=== PATIENT | male | born 1990 ===

== ENCOUNTER 2020-04-10 06:42 | Outpatient (NON) | payer BC, SELFPAY ==
[2020-04-13 01:47] LABS: SARS-CoV-2 RNA PCR Negative
== END 2020-04-10 06:43 ==
DX: Z01.812 Encounter for preprocedural laboratory examination (principal); Z20.828 Contact with and (suspected) exposure to other viral communicable diseases
CPT/HCPCS: 87635; C9803; U0003

== ENCOUNTER 2020-05-24 06:54 | Outpatient (NON) | payer BC, SELFPAY ==
[2020-05-24 23:28] LABS: SARS-CoV-2 RNA PCR Negative
== END 2020-05-24 06:55 ==
LOC: ANHCOVIDDT 07:11
DX: Z01.812 Encounter for preprocedural laboratory examination (principal); Z20.822 Contact with and (suspected) exposure to COVID-19
CPT/HCPCS: C9803; U0003